=== PATIENT | female | born 1980 | race Asian ===

== ENCOUNTER 2016-09-12 19:49 | Emergency (ER) | payer OTHER ==
[2016-09-12] MEDS ORDERED: PEPCID IV ONE ×2 (20:00→20:01)
[2016-09-12] MEDS ORDERED: DECADRON IV ONE (20:01)
[2016-09-12] MEDS ORDERED: DECADRON ONE (20:01)
[2016-09-12] MEDS ORDERED: BENADRYL IV ONE (20:01)
[2016-09-12] MEDS ORDERED: BENADRYL ONE (20:01)
--- NOTE | 2016-09-12 20:26 | Emergency Department Report ---
HPI - General Chief Complaint: Allergic Reaction Time Seen by Provider: 09/12/16 20:16 - HPI HPI: 35 yo female with no significant past medical history presents to the hospital complains of allergic reaction. Patient was stung by a yellow jacket while cleaning out the barn. The yellow jackets stung her on her right foot. Patient cleaned the area applied Neosporin and then last an hour later started to develop a diffuse pruritic rash/hives. Symptoms began to gradually worsen and spread to her face so patient came to the hospital for treatment. No complaints of difficulty breathing, throats swelling, difficulty swallowing, or wheezing. Patient denies previous exposure/allergy to bee venom in the past. ED Past Medical Hx - Past Medical History Previous Medical History?: No - Surgical History Past Surgical History?: No - Social History Smoking Status: Never Smoker Substance Use Type: None - Medications Home Medications: Home Medications Medication Instructions Recorded Confirmed Last Taken Type EPINEPHrine [Adrenaclick] 0.3 mg IM ONCE #1 dose 09/12/16 Unknown Rx Famotidine [Pepcid] 20 mg PO BID #10 tablet 09/12/16 Unknown Rx Prednisone [predniSONE 10 mg 10 mg PO .TAPER #1 tab.ds.pk 09/12/16 Unknown Rx (6-Day Pack, 21 Tabs)] diphenhydrAMINE [Benadryl CAP] 25 mg PO Q6HR PRN #30 capsule 09/12/16 Unknown Rx ED Review of Systems ROS: Stated complaint: INSECT BITE, REACTION Other details as noted in HPI Comment: All other systems reviewed and negative Other: Constitutional: No fevers chills Eyes: No eye pain visual changes ENT: No ear pain or throat pain Neck: Denies pain Respiratory: Denies cough wheezing shortness of breath Cardiovascular: Denies chest pain, palpitations, syncope GI: Denies abdominal pain, nausea, vomiting, diarrhea : Denies dysuria, urinary frequency, or urgency Musculoskeletal: Denies back pain, joint swelling Skin: As per HPI Neurologic: Denies headache, numbness, weakness Psychiatric: Denies suicidal ideation, hallucinations Physical Exam - Physical Exam Vital Signs: Vital Signs 09/12/16 19:51 Temperature 98 F Pulse Rate 85 Respiratory 18 Rate Blood Pressure 148/89 O2 Sat by Pulse 100 Oximetry Physical Exam: General: No limitations, patient is alert in no acute distress Head exam: Atraumatic, normocephalic Eyes exam: Normal appearance, pupils equal reactive to light ENT: Moist mucous membrane, normal oropharynx without edema Neck exam: Normal inspection, full range of motion, no meningismus nontender Respiratory exam: Clear to auscultation bilateral, no wheezes, rales, crackles Cardiovascular: Normal rate and rhythm, normal heart sounds Abdomen: Soft, nondistended, and nontender, with normal bowel sounds, no rebound, or guarding Extremity: Full range of motion normal inspection no deformity Back: Normal Inspection, full range of motion, no tenderness Neurologic: Alert, oriented x3, cranial nerves intact, no motor or sensory deficit Psychiatric: normal affect, normal mood Skin: Diffuse hives with exception of legs ED Course Vital Signs 09/12/16 19:51 Temperature 98 F Pulse Rate 85 Respiratory 18 Rate Blood Pressure 148/89 O2 Sat by Pulse 100 Oximetry - Reevaluation(s) Reevaluation #1: 09/12/16 21:54 She was observed and her symptoms remained improved after receiving IV medication for acute allergic reaction. No airway symptoms. ED Medical Decision Making - Medical Decision Making Patient stable for discharge. Improved rash. NO airway symptoms. Will be discharged on meds - Differential Diagnosis allergic reaction, insect sting Critical Care Time: No Critical care attestation.: If time is entered above; I have spent that time in minutes in the direct care of this critically ill patient, excluding procedure time. ED Disposition Clinical Impression: Yellow jacket sting allergy Disposition: [id number] TO HOME OR SELFCARE Is pt being admited?: No Does the pt Need Aspirin: No Condition: Stable Instructions: Anaphylaxis (ED) Additional Instructions: Take medication as prescribed. Return if symptoms worsen. Use epinephrine pen for severe allergy symptoms and will go to closest ER. Prescriptions: diphenhydrAMINE [Benadryl CAP] 25 mg PO Q6HR PRN #30 capsule PRN Reason: Allergic Reaction EPINEPHrine [Adrenaclick] 0.3 mg IM ONCE #1 dose Famotidine [Pepcid] 20 mg PO BID #10 tablet Prednisone [predniSONE 10 mg (6-Day Pack, 21 Tabs)] 10 mg PO .TAPER #1 tab.ds.pk Referrals: PRIMARY CARE, [Primary Care Provider] - 3-5 Days Time of Disposition: 21:55
[2016-09-12 22:37] VITALS: BP 132/88
== END 2016-09-12 22:55 | disposition home or self-care (01) ==
LOC: ED 19:49
DX: T63.481A Toxic effect of venom of other arthropod, accidental (unintentional), initial encounter (principal); Y92.89 Other specified places as the place of occurrence of the external cause
CPT/HCPCS: 96374; 96375; 99282; J1100; J1200